=== PATIENT | male | born 1970 | race Caucasian/White ===

== ENCOUNTER 2018-09-21 22:14 | Emergency (ER) | payer OTHER, BC ==
[2018-09-21] MEDS ORDERED: Metoclopramide 10 MG/2 ML SDV IVPUSH ONE (22:24)
[2018-09-21] MEDS ORDERED: HYDROmorphone 1 MG/ML Syringe IVPUSH ONE (22:25)
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
[2018-09-21] MEDS ORDERED: Sodium Chloride 0.9% 1,000 ML IV SCH (22:30)
[2018-09-21 23:23] VITALS: BP 126/74
[2018-09-22] MEDS ORDERED: HYDROmorphone 1 MG/ML Syringe IVPUSH ONE (00:02)
[2018-09-22] MEDS ORDERED: Diphtheria,Pertussis(Acell),Tetanus Vaccine 0.5 ML Syringe IM ONE (00:56)
--- NOTE | 2018-09-22 06:22 | CR ---
Left elbow: Four views of the left elbow were obtained. Comparison: No prior elbow study. Fracture identified within the radial neck and radial head. This fracture is slightly comminuted. Joint effusion is seen. No additional fracture or other bony abnormality is seen. Soft tissue swelling also noted. Impression: 1. Slightly comminuted fracture involving the radial neck and radial head. 2. Joint effusion. Diagnostic code #3 I agree with preliminary report from [facility], finalized on 09/22/18, 2:11 AM Central Time
--- NOTE | 2018-09-22 06:42 | CR ---
Left humerus: Two views of the left humerus were obtained. Comparison: No prior humerus study. No discrete fracture or other abnormality seen within the humerus. Soft tissue swelling is noted around the elbow. Impression: 1. No acute bony abnormality is seen within the left humerus. Diagnostic code #2 I agree with preliminary report from [facility], finalized on 09/22/18, 2:09 AM Central Time
== END 2018-09-22 01:15 | disposition home or self-care (01) ==
LOC: JD.ED 22:14
DX: S52.122A Displaced fracture of head of left radius, initial encounter for closed fracture (principal); S01.81XA Laceration without foreign body of other part of head, initial encounter; S70.12XA Contusion of left thigh, initial encounter; M25.562 Pain in left knee; M25.561 Pain in right knee; W25.XXXA Contact with sharp glass, initial encounter; V58.5XXA Driver of pick-up truck or van injured in noncollision transport accident in traffic accident, initial encounter; Z23 Encounter for immunization
CPT/HCPCS: 29105; 73060; 73080; 90471; 90700; 96374; 96375; 96376; 99285; J1170; J2765; 99284